=== PATIENT | female | born 1950 | race American Indian/Alaskan Native ===

== ENCOUNTER 2021-02-13 14:26 | Outpatient (CLI) | payer BC ==
[2021-02-13 16:15] LABS: Blood Urea Nitrogen TNR mg/dL (7-17)
--- NOTE | 2021-02-14 08:23 | Mammography Report ---
DIGITAL SCREENING MAMMOGRAM WITH CAD, 02/13/2021 INDICATION: Routine screening mammography. TECHNIQUE: Digital bilateral 2D mammography was obtained in the craniocaudal and mediolateral obliq ue projections. This examination was interpreted with the benefit of Computer-Aided Detection analysi s. COMPARISON: 08/15/2018. FINDINGS: Breast Density: There are scattered areas of fibroglandular density. There is no evidence of dominant mass, suspicious calcifications or architectural distortion in eithe r breast. Postbiopsy change remains left breast. IMPRESSION: Follow up recommendation: Routine yearly BI-RADS Category 2: Benign. A "normal" or negative report should not discourage follow up or biopsy of a clinically significant f inding. A written summary of these findings will be mailed to the patient. The patient will be entered into a mammography reporting system which will generate a reminder letter for the patient's next appointmen t at the appropriate interval. The [employer] recommends yearly mammograms starting at age 40 and continuing as l isaias as a woman is in good health. Breast MRI is recommended for women with an approximate 20-25% or greater lifetime risk of breast cancer, including women with a strong family history of breast or ova maria a cancer or who have been treated for Hodgkin's disease. Signer Name: Aaron Snaders MD Signed: 02/14/2021 8:19 AM Workstation Name: [id number]
== END 2021-02-13 14:27 | disposition home or self-care (01) ==
LOC: MAMMO 14:26
PROVIDERS: ATTEND Surgery
DX: Z12.31 Encounter for screening mammogram for malignant neoplasm of breast (principal); R91.8 Other nonspecific abnormal finding of lung field
CPT/HCPCS: 36415; 77067; 82565